=== PATIENT | female | born 1945 | race Caucasian/White ===

== ENCOUNTER 2020-03-21 05:56 | Day surgery (SDC) | payer MEDICARE, BC ==
[2020-03-20 14:31] LABS: BASOPHILS # (AUTO) 0.1 X10'3 (0-0.2); EOSINOPHILS # (AUTO) 0.2 X10'3 (0-0.9); EOSINOPHILS % (AUTO) 4.7 % (0-6); HEMATOCRIT 41.5 % (35.0-45.0); LYMPHOCYTES # (AUTO) 1.3 X10'3 (1.1-4.8); LYMPHOCYTES % (AUTO) 32.9 % (21-51); MEAN CORPUSCULAR HEMOGLOBIN 33.2 PG (27.0-31.0); MEAN CORPUSCULAR HGB CONC 33.7 g/dL (33.0-36.5); MEAN CORPUSCULAR VOLUME 98.5 FL (78-98); MEAN PLATELET VOLUME 8.6 FL (7.4-10.4); MONOCYTES # (AUTO) 0.4 X10'3 (0-0.9); MONOCYTES % (AUTO) 10.3 % (2-12); NEUTROPHILS # (AUTO) 1.9 X10'3 (1.8-7.7); NEUTROPHILS % (AUTO) 50.1 % (42-75); PLATELET COUNT 80 X10'3 (140-440); RED BLOOD COUNT 4.21 X10'6 (4.20-5.60); RED CELL DISTRIBUTION WIDTH 15.3 % (11.5-14.5); WHITE BLOOD COUNT 3.9 X10'3 (4.5-11.0)
[2020-03-20 14:35] LABS: ALBUMIN 3.4 G/DL (3.4-5.0); ANION GAP 7 (8-16); BLOOD UREA NITROGEN 11 MG/DL (7-18); BUN/CREATININE RATIO 13.8 (6.6-38.0); CALCIUM 10.5 MG/DL (8.5-10.1); CHLORIDE 110 MMOL/L (99-107); GLUCOSE 75 MG/DL (70-104); SODIUM 145 MMOL/L (135-145); TOTAL CARBON DIOXIDE 28.3 MMOL/L (24-32); eGFR 70 ML/MIN
[2020-03-20 14:39] LABS: PARTIAL THROMBOPLASTIN TIME 34 SECONDS (22-32)
[~2020-03-21] VITALS: Ht 167.6 cm; Wt 75.4 kg
[2020-03-21] VITALS (11 sets, daily range): BP systolic 138–165; BP diastolic 62–77
[2020-03-21] MEDS ORDERED: diphenhydrAMINE 25mg capsule PO PRN (06:15)
[2020-03-21] MEDS ORDERED: LORazepam 0.5 MG tablet PO PRN (06:15)
[2020-03-21] MEDS ORDERED: normal saline 1,000 ML IV SCH (06:15)
[2020-03-21] MEDS ORDERED: LIDOcaine/PRILOcaine 5gm cream TP ONE (06:35)
[2020-03-21] MEDS ORDERED: LOSA50TA64 PO (07:18)
[2020-03-21] MEDS ORDERED: ANAS1TAB10 PO (07:18)
[2020-03-21] MEDS ORDERED: POTA10TA10 PO (07:18)
[2020-03-21] MEDS ORDERED: PRILOSEC INJ (07:18)
[2020-03-21] MEDS ORDERED: ROSU10TA2 PO (07:18)
[2020-03-21] MEDS ORDERED: LEVO100T PO (07:18)
[2020-03-21] MEDS ORDERED: FURO40TA4 PO (07:18)
[2020-03-21] MEDS ORDERED: midazolam 2 mg/2 ml injection ONE (07:42)
[2020-03-21] MEDS ORDERED: verapamil 2.5 mg/ml inj IV ONE (07:42)
[2020-03-21] MEDS ORDERED: nitroGLYCERIN-Tridil 50MG/D5W 250 ML IV ONE (07:42)
[2020-03-21] MEDS ORDERED: heparin 1,000unit/ml 10ml vial 10 ML ONE (07:43)
[2020-03-21] MEDS ORDERED: LIDOcaine 1% 30ml preserv. free vial ONE (07:43)
[2020-03-21] MEDS ORDERED: iohexol 350MG/ML 100ml bottle IV ONE (07:43)
[2020-03-21] MEDS ORDERED: fentaNYL/PF 50MCG/1 ML 2ML syringe ONE (07:43)
[2020-03-21] MEDS ORDERED: iohexol 350 MG/ML 50ML vial IV ONE (07:43)
== END 2020-03-21 15:00 | disposition home or self-care (01) ==
LOC: SSTAY O 05:56
PROVIDERS: ATTEND Internal Medicine Cardiovascular Disease
DX: R94.39 Abnormal result of other cardiovascular function study (principal); R53.83 Other fatigue; R06.02 Shortness of breath; I25.10 Atherosclerotic heart disease of native coronary artery without angina pectoris; E78.5 Hyperlipidemia, unspecified; I11.0 Hypertensive heart disease with heart failure; I50.9 Heart failure, unspecified; E03.9 Hypothyroidism, unspecified; M81.0 Age-related osteoporosis without current pathological fracture; K21.9 Gastro-esophageal reflux disease without esophagitis; J91.8 Pleural effusion in other conditions classified elsewhere; Z85.3 Personal history of malignant neoplasm of breast; Z98.890 Other specified postprocedural states; Z88.0 Allergy status to penicillin; Z88.2 Allergy status to sulfonamides; Z79.899 Other long term (current) drug therapy
CPT/HCPCS: 36415; 80048; 85025; 85610; 85730; 93005; 93458; 99152; 99153; C1769; C1894; J1644; J2001; J2250; J3010; Q0163; Q9967; A4620; A5120; A6258; J3490

== ENCOUNTER 2024-11-12 12:25 | Outpatient (CLI) | payer MEDICARE, BC ==
[~2024-11-12 12:25] MED LIST: DOCU-171 PO; FURO40TA4 PO; LACT10SO78 PO; MULT-1219 PO; OMEP20CA16 PO; POTA-206 PO; RIFA550T PO; ROSU10TA72 PO; SPIR25TA5 PO; SYN0.088T PO
--- NOTE | 2024-11-12 14:30 | VASCULAR REPORT ---
BILATERAL Lower Extremity Arterial Duplex Date: 11/12/2024 01:06 PM Clinical History: Comparison: None Technique: Duplex Doppler evaluation including color Doppler and spectral/pulsed waveform analysis of the lower extremity arteries was performed. Finding: VELOCITY AND DOPPLER WAVEFORM ANALYSIS RIGHT cm/se Waveform Severity LEFT cm/se Waveform Severity c c dCFA 143.0 Multiphasic dCFA 113.3 Multiphasic Prof Fem 140.4 Multiphasic Prof Fem 88.2 Multiphasic Art Art. Fem Art 104.0 Multiphasic Fem Art 97.2 Multiphasic Prox. Prox Fem Art 100.8 Multiphasic Fem Art 116.9 Multiphasic Mid Mid. Fem Art 76.4 Multiphasic Fem Art 99.0 Multiphasic Dist Dist. Pop Art(AK) 85.0 Multiphasic Pop Art(AK) 73.8 Multiphasic Pop Art(BK) 129.5 Multiphasic Pop Art(BK) 88.1 Multiphasic NETWORK STRATEGIST Dist. 96.7 Multiphasic NETWORK STRATEGIST Dist. 82.5 Multiphasic Per Art Dist. 60.1 Multiphasic Per Art Dist. 63.8 Multiphasic JENNIFRE Dist. 113.1 Multiphasic JENNIFER Dist. 90.9 Multiphasic DPA 71.2 Multiphasic DPA 89.7 Multiphasic CONCLUSION Imaging reveals patent arteries bilaterally. No evidence of significant stenosis and/or occlusion ceasar aterally. Multiphasic flow at all levels bilaterally.
--- NOTE | 2024-11-12 14:30 | VASCULAR REPORT ---
Bilateral lower extremity venous duplex Clinical History: Bilateral swelling Comparison: None Technique: Duplex Doppler evaluation of the deep venous systems of both lower extremities from the common femora l veins to the popliteal veins including color Doppler and spectral/pulsed waveform analysis was perf ormed. Findings: RIGHT SIDE: The common femoral vein demonstrates appropriate compressibility and waveform variability. There is compressibility/patency of the great saphenous vein at the proximal thigh. The femoral vein demonstrates appropriate compressibility and waveform variability. The deep femoral vein demonstrates appropriate compressibility and waveform variability. The popliteal vein demonstrates appropriate compressibility and waveform variability. There is normal compressibility at the tibioperoneal trunk. LEFT SIDE: The common femoral vein demonstrates appropriate compressibility and waveform variability. There is compressibility/patency of the great saphenous vein at the proximal thigh. The femoral vein demonstrates appropriate compressibility and waveform variability. The deep femoral vein demonstrates appropriate compressibility and waveform variability. The popliteal vein demonstrates appropriate compressibility and waveform variability. There is normal compressibility at the tibioperoneal trunk. Impression: No right or left femoropopliteal venous thrombosis.
== END 2024-11-12 23:59 | disposition home or self-care (01) ==
LOC: VAS 12:25
PROVIDERS: ATTEND Nurse Practitioner Family
DX: R60.0 Localized edema (principal)
CPT/HCPCS: 93925; 93970

== ENCOUNTER 2024-12-23 08:39 | Emergency (ER) | payer MEDICARE, BC ==
[~2024-12-23] VITALS: Ht 167.6 cm; Wt 72.0 kg
[~2024-12-23 08:39] MED LIST changes: -ROSU10TA72 PO; +ROSU10TA98 PO
[2024-12-23 08:47] VITALS: BP 149/61; PULSE 80; TEMP 98; O2SAT 98
--- NOTE | 2024-12-23 08:54 | Physician Documentation ---
History of Present Illness ~ Stated Complaint: LOWER BACK PAIN Time Seen by MD: 08:51 Primary Medical Doctor: DR. PAULINA LOGAN [facility] HPI Female presents to the ED with a complaint right lumbar pain which occurred spontaneously three days ago hurts to stand up for laid down. Symptoms denies any fevers numbness tingling or any other red flag symptoms Day of Onset: Dec 23, 2024 Medication Reconciliation Allergies: Coded Allergies: Penicillins (Verified Allergy, Unknown, 12/23/24) Sulfa (Sulfonamide Antibiotics) (Verified Allergy, Unknown, 12/23/24) Uncoded Allergies: CIMCOLGE (Allergy, Unknown, 04/18/22) Scheduled Docusate Sodium (Dulcolax Stool Softener), 1 CAP PO Q12H, (Reported) Furosemide (Furosemide), 1 TAB PO DAILY, (Reported) Lactulose (Lactulose), 20 GM PO Q4H Levothyroxine Sodium* (Synthroid*), 1 TAB PO DAILY, (Reported) Multivitamin (One-Daily Multi-Vitamin), 1 TAB PO DAILY, (Reported) Nitrofurantoin Macrocrystal (Nitrofurantoin), 1 CAP PO Q12H Omeprazole (Omeprazole), 1 CAP PO DAILY@1700, (Reported) Potassium Chloride (K-Dur), 1 TAB PO BID, (Reported) Rifaximin (Xifaxan), 550 MG PO BID Rosuvastatin Calcium (Rosuvastatin Calcium), 1 TAB PO DAILY, (Reported) Spironolactone (Spironolactone), 1 TAB PO DAILY, (Reported) Past Medical History Past Medical History: Cirrohsis, Constipation, Liver Failure, Hyperparathyroidism, Hypothyroidism Past Surgical History: no surgical history Alcohol Use: None Drug Use: none Lives In: Home Review of Systems All Other Systems at this time: Reviewed and Negative ROS As stated above in the HPI, otherwise all systems are reviewed and negative. Physical Exam Physical Exam Physical Exam General: Alert, no apparent distress. HEENT: PERRL, EOMI, no injection, moist mucous membranes. back. tender to Lumbar region Respiratory: Lungs clear, no respiratory distress. Neurologic: Oriented x4. Psychiatric: Normal mood and affect. Skin: Normal color, warm and dry. No edema, no ecchymosis. Progress Results/Orders Results/Orders Orders - DEVIN,LONNIE H DANCE THERAPIST Lumbar Spine Limited (12/23/24 08:54) Hydrocodone/Apap 10/325 ([place] 10/325mg (12/23/24 10:10) Completed Orders - PAIGE BELTRANIN Lisa DANCE THERAPIST Lumbar Spine Limited (12/23/24 08:54) Ua W/Microscopic, Cult If Ind (12/23/24 09:33) Nitrofur [place]/Nitrofuran Macr (Macrobid (12/23/24 10:10) Medications Received in ER Medications (Trade) Dose Ordered Sig/Oscar Route PRN Reason Start Time Stop Time Status Last Admin Dose Admin (MacroBID capsule) 100 mg ONCE ONCE PO 12/23/24 10:10 12/23/24 10:11 DC 12/23/24 10:21 100 MG ([place] 10/325mg tab) 1 tab ONCE ONCE PO 12/23/24 10:10 12/23/24 10:11 DC 12/23/24 10:21 1 TAB Vital Signs 12/23/24 12/23/24 12/23/24 08:47 10:21 10:25 Temp 98.0 Pulse 80 Resp 16 18 17 B/P (MAP) 149/61 Pulse Ox 98 O2 Flow Rate 0 Laboratory Tests Test 12/23/24 09:33 Urine Specimen Description Cln catch midstream Urine Color Yellow Urine Clarity Clear Urine pH 6.5 Urine Specific [place] 1.010 Urine Protein Negative Urine Glucose (UA) Negative Urine Ketones Trace H Urine Occult Blood Negative Urine Nitrite Negative Urine Bilirubin Negative Urine Urobilinogen 0.2 Urine Leukocyte Esterase Trace H Urine RBC 3-10 Urine WBC 5-10 H Urine Squamous Epithelial Cells Many Urine Transitional Epithelial Cells Moderate Urine Renal Cells Few Urine Bacteria 1+ Urine Culture Indicated Rejected for culture Volume Urine Centrifuged 10 ml Urine Comment Medical Decision Making Additional information obtaine: N/A Findings X-ray in his largely unremarkable and is consistent with her previous x-rays in 2021 which indicated compression fractures in the lumbar region suspect this is a pain exacerbation secondary to your previous injuries. Has a evidence of a minor UTI which I will treat her for. Benefit from a referral to the pain management Clinic which I will advise her of Differential Dx:Considerations: Musculoskeletal pain, Urinary obstruction Departure Disposition: HOME / SELF CARE / HOMELESS Impression: Primary Impression: Chronic back pain Additional Impressions: Lumbar sprain UTI (urinary tract infection) Condition: Stable Discharge Instructions: Chronic Back Pain, Lumbosacral Strain Additional Instructions: I am recommending that she follow up with your primary care provider for ongoing lumbar pain. May benefit from a referral to go to the pain clinic as they have multiple avenues and modalities for pain treatment Referrals: NO PRIMARY CARE PROVIDER (PCP) Prescriptions Nitrofurantoin Macrocrystal (Nitrofurantoin) 100 Mg Capsule 1 CAP PO Q12H for 7 Days, #14 CAP 0 Refills Prov: LONNIE BELTRAN NP 12/23/24 Education Educated: Patient Educated regarding: diagnosis Signature Scribe Signature: g Attestation: Scribed for Lonnie Beltran Fire Engine Pump Operator by Lonnie Cruz NP . 12/23/24 14:47 LONNIE BELTRAN NP Dec 23, 2024 08:54
--- NOTE | 2024-12-23 09:21 | RADIOLOGY REPORT ---
INDICATION: pain COMPARISON: MRI LUMBAR SPINE on DOS: 02/27/22 TECHNIQUE: 2 views of the lumbar spine were obtained. FINDINGS/IMPRESSION: Vertebral compression fracture of the L1 vertebral body with less than 25% loss of vertebral body height and mild retropulsion. Mild vertebral compression fracture of the L3 vertebral body with less than 25% loss of vertebral body height. Findings appear stable compared to prior MRI from 02/27/2022. No acute fracture. Severe multilevel degenerative disc disease of the lumbosacral spine.
[2024-12-23 09:55] LABS: LEUKOCYTE ESTERASE ,URINE TRACE (Neg); NITRITES, URINE NEGATIVE (Neg); OCCULT BLOOD,URINE NEGATIVE (Neg)
[2024-12-23 10:03] LABS: UA COLLECTION TYPE CLN CATCH MIDSTREAM
[2024-12-23 10:06] LABS: SQUAMOUS EPITHELIAL CELL,UR MANY /LPF (FEW)
[2024-12-23 10:07] LABS: RENAL CELLS, URINE FEW /HPF
[2024-12-23] MEDS ORDERED: NITR100C PO (10:13)
[2024-12-23] MEDS: HYDROcodone/acetaminophen 10/325mg tab PO ONE (10:21)
[2024-12-23] MEDS: nitrofuran monohydrate/nitrofuran macrocrysal 100 MG (MacroBID) capsule PO ONE (10:21)
[2024-12-23 10:25] VITALS: RESP 17
== END 2024-12-23 10:39 | disposition home or self-care (01) ==
LOC: ER 08:40
DX: S33.5XXA Sprain of ligaments of lumbar spine, initial encounter (principal); N39.0 Urinary tract infection, site not specified; G89.29 Other chronic pain; E03.9 Hypothyroidism, unspecified; Z88.0 Allergy status to penicillin; Z88.2 Allergy status to sulfonamides; Z79.899 Other long term (current) drug therapy; X58.XXXA Exposure to other specified factors, initial encounter; Y93.89 Activity, other specified; Y92.89 Other specified places as the place of occurrence of the external cause; Y99.8 Other external cause status
CPT/HCPCS: 72100; 81001; 99284

== ENCOUNTER 2025-02-11 07:53 | Emergency (ER) | payer MEDICARE, BC ==
[~2025-02-11] VITALS: Ht 165.1 cm; Wt 73.0 kg
[~2025-02-11 07:53] MED LIST changes: +NITR100C PO
[2025-02-11 07:54] VITALS: BP 126/52; PULSE 70; RESP 18; O2SAT 99
[2025-02-11] MEDS ORDERED: BENZ-38 PO (09:43)
[2025-02-11] MEDS ORDERED: ALBU8HFA INH (09:43)
[2025-02-11] MEDS ORDERED: GUAI600T45 PO (09:43)
--- NOTE | 2025-02-11 09:45 | Physician Documentation ---
History of Present Illness ~ Chief Complaint: Cough Stated Complaint: COLD SYMPTOMS Time Seen by MD: 09:24 OK to notify your PCP?: Yes Primary Medical Doctor: [facility] Source: patient Mode of Arrival: POV Exam Limitations: no limitations HPI 79-year-old female with chief complaint cough which started five days ago. She states cough at times can be significant. she has been taking some over-the- counter cough medication that has not been helping but she can not tell me what she has been taking. She denies any smoking history, asthma, COPD. She denies shortness of breath, fever, chills, sinus pain, sore throat, chest pain. Medication Reconciliation Allergies: Coded Allergies: Penicillins (Verified Allergy, Unknown, 12/23/24) Sulfa (Sulfonamide Antibiotics) (Verified Allergy, Unknown, 12/23/24) Uncoded Allergies: CIMCOLGE (Allergy, Unknown, 04/18/22) Scheduled Docusate Sodium (Dulcolax Stool Softener), 1 CAP PO Q12H, (Reported) Furosemide (Furosemide), 1 TAB PO DAILY, (Reported) Lactulose (Lactulose), 20 GM PO Q4H Levothyroxine Sodium* (Synthroid*), 1 TAB PO DAILY, (Reported) Multivitamin (One-Daily Multi-Vitamin), 1 TAB PO DAILY, (Reported) Nitrofurantoin Macrocrystal (Nitrofurantoin), 1 CAP PO Q12H Omeprazole (Omeprazole), 1 CAP PO DAILY@1700, (Reported) Potassium Chloride (K-Dur), 1 TAB PO BID, (Reported) Rifaximin (Xifaxan), 550 MG PO BID Rosuvastatin Calcium (Rosuvastatin Calcium), 1 TAB PO DAILY, (Reported) Spironolactone (Spironolactone), 1 TAB PO DAILY, (Reported) Past Medical History Past Medical History: Cirrohsis, Constipation, Liver Failure, Hyperparathyroidism, Hypothyroidism Past Surgical History: no surgical history Alcohol Use: None Drug Use: none Lives In: Home Review of Systems All Other Systems at this time: Reviewed and Negative Physical Exam Vital Signs: Temperature: 97.8, Source: Oral, Heart Rate: 70, Respiratory Rate: 18, BP: 126/52, Pulse Oximetry: 99, Weight: 73.000 Oxygen Flow Rate: 0 Physical Exam GENERAL: Alert, no acute distress. HEENT: NCAT, EOMI, PERRL, normal oropharynx, moist oral mucosa. NECK: Supple, trachea midline. CARDIAC: Regular rate and rhythm, no murmurs, rubs, or gallops. Equal distal pulses. No lower extremity edema, cap refill less than 2 seconds. RESPIRATORY: Equal breath sounds, SCATTERED RHONCHI, no respiratory distress. NO COUGHING OBSERVED. MUSCULOSKELETAL: Normal range of motion, nontender, no swelling. Normal gait. NEUROLOGICAL: Awake, alert, and oriented x 3. SKIN: Warm/dry, no pallor, no rash. PSYCH: Alert and appropriate. Affect congruent with mood. Speech is clear. Good eye contact. Progress Results/Orders Results/Orders Vital Signs 02/11/25 07:54 Temp 97.8 Pulse 70 Resp 18 B/P (MAP) 126/52 Pulse Ox 99 O2 Flow Rate 0 Medical Decision Making Additional information obtaine: N/A Findings n/a Differential Dx:Considerations: Include: Allergic rhinitis, Influenza, Otitis media, Peritonsillar abscess, Pharyngitis-Diphtheria, Pharyngitis-Streptoccal, Pharyngitis-Viral, Pneumonia, Pnuemonitis, Sinusitis, URI, Other Departure Time of Disposition: 09:40 Disposition: 01 HOME / SELF CARE / HOMELESS Impression: Primary Impression: Acute bronchitis Qualified Codes: J20.9 - Acute bronchitis, unspecified Condition: Stable Discharge Instructions: Bronchitis Additional Instructions: We do not treat bronchitis with antibiotics unless there is underlying COPD or other chronic pulmonary conditions which you denied. I sent medication to help with your symptoms. If you develop fever, shortness of breath or worsening of symptoms, return to ER. Referrals: NO PRIMARY CARE PROVIDER (PCP) Prescriptions Benzonatate* (Benzonatate*) 100 Mg Capsule 1-2 CAP PO Q8H for cough for 5 Days, #30 CAP Prov: OPPEZZO,MELODY T PA 02/11/25 Guaifenesin (Mucinex) 600 Mg Tablet.sa 1 TAB PO Q12H for cough for 10 Days, #20 TAB 0 Refills Prov: OPPEZZO,MELODY T PA 02/11/25 albuterol inhaler (Pro-Air Inhaler) 8.5 Gm Inhaler 2 PUFFS INH Q4HPRN PRN for cough for 30 Days, #18 GM Prov: MELODY LEON 02/11/25 Education Educated: Patient Educated regarding: diagnosis, treatment, need for follow up Signature Scribe Signature: X Attestation: MELODY BORGES Feb 11, 2025 09:45
[2025-02-11 09:53] VITALS: TEMP 97.8
== END 2025-02-11 09:54 | disposition home or self-care (01) ==
LOC: ER 07:53
DX: J20.9 Acute bronchitis, unspecified (principal); E03.9 Hypothyroidism, unspecified; E21.3 Hyperparathyroidism, unspecified; Z88.0 Allergy status to penicillin; Z88.2 Allergy status to sulfonamides; Z79.899 Other long term (current) drug therapy
CPT/HCPCS: 99283

== ENCOUNTER 2025-02-18 10:25 | Outpatient (CLI) | payer MEDICARE, BC ==
[~2025-02-18 10:25] MED LIST changes: +ALBU8HFA INH; +GUAI600T45 PO
[2025-02-18 11:03] LABS: MEAN PLATELET VOLUME 9.2 FL (7.4-10.4); RED CELL DISTRIBUTION WIDTH 16.1 % (11.5-14.5)
--- NOTE | 2025-02-18 11:04 | RADIOLOGY REPORT ---
CLINICAL HISTORY: BRONCHITIS TECHNIQUE: Chest 2 views of the chest were obtained. COMPARISON: CHEST,SINGLE VIEW on DOS: 04/18/22 FINDINGS: The heart size and pulmonary vasculature are normal. The lungs are clear. No pleural effusion is present. Surgical clips project at the left axilla. IMPRESSION: NO ACUTE CARDIOPULMONARY PROCESS.
== END 2025-02-18 23:59 | disposition home or self-care (01) ==
LOC: RAD 10:25
PROVIDERS: ATTEND Student in an Organized Health Care Education/Training Program
DX: J40 Bronchitis, not specified as acute or chronic (principal)
CPT/HCPCS: 36415; 71046; 85025; 87070